=== PATIENT | female | born 1940 | race Caucasian/White ===

== ENCOUNTER 2016-11-29 11:53 | Day surgery (SDC) | payer MEDICARE ==
[~2016-11-29] VITALS: Ht 162.6 cm; Wt 74.4 kg
[~2016-11-29 11:53] MED LIST: ASPIR-TRIN325 MG PO; CELEXA40 MG PO; ESTRACE1 MG OR; FUROSEMIDE 40MG40 M1 PO; LEVOTHYROXIN0.075 M1 PO; LIPITOR40 MG PO; VALSARTAN80 MG PO; ZOFRAN 8MG TABLE8 MG PO
[2016-11-29 12:03] VITALS: BP 136/78
[2016-11-29 12:19] VITALS: BP 136/78
[2016-11-29 12:22] VITALS: BP 132/78
[2016-11-29 12:30] VITALS: BP 155/68
--- NOTE | 2016-11-29 12:32 | Procedure Note ---
Procedure detail Date of procedure: 11/29/16 Anesthesiologist: Nicholas Dewey M.D. Complications: None Pre-procedure diagnosis: Degenerative disc disease of lumbar spine with lumbar radiculopathy symptoms Post-procedure diagnosis: Same Indications for procedure: This patient is a pleasant 76-year-old white female who we are taking over management of her intrathecal sufentanil/bupivacaine pain pump. She is currently running at 4 mg per day of intrathecal sufentanil/bupivacaine. She is having some increased pain with increased activity. We will refill her pump and increase her infusion today to 4.2 mg per day. Procedure detail: Pain pump refill Informed consent was obtained and the risk and benefits of the procedure was explained to the patient. The patient was taken to the procedure room. The area over the pump was prepped using ChloraPrep. The pump was accessed with a 22- gauge needle. Approximately 6 mL of the mixture was withdrawn and discarded. The pump was then refilled with 40 mL of intrathecal sufentanil 8 mg per mL plus bupivacaine 16 mg per mL. Pump was interrogated. Infusion was increased to 4.2 Mg per day. PTM boluses remained at 0.4 mg up to 8 times a day with a 3 hour lockout. Plan and disposition: We will follow-up with her at her next pump refill. If she has any problems or questions she is to call us in the pain clinic. at [phone]
== END 2016-11-29 12:30 | disposition home or self-care (01) ==
LOC: PM 11:53
DX: M51.16 Intervertebral disc disorders with radiculopathy, lumbar region (principal)